=== PATIENT | female | born 1930 | race Caucasian/White ===

== ENCOUNTER 2020-07-10 00:01 | Inpatient (IN) | payer MEDICARE, OTHER ==
[~2020-07-10 00:01] MED LIST: ASPIRIN EC81 MG PO; ATIVAN1 MG PO; CEFDINIR300 MG PO; CLORAZEPATE DI7.5 MG PO; HYDRALAZINE 10M10 MG PO; KEPPRA500 MG PO; LOZOL2.5 MG PO; NIFEREX150 MG PO; PROTONIX 40MG T40 MG PO; TOPROL XL100 MG PO; [UNRECOGNIZED DRUG - OTHER] PO
[2020-07-10 00:24] LABS: BASOPHIL 0.3 % (0-2); EOSINOPHIL 0.1 % (0-7); HCT 48.7 % (37.0-47.0); HGB 15.6 g/dl (12.5-16.0); LYMPHOCYTE 6.1 % (15-48); MCH 29.1 pg (25.0-31.0); MCV 90.7 fL (78.0-100.0); MONOCYTE 2.1 % (0-12); MPV 10.2 fL (6.0-9.5); NEUTROPHIL 91.1 % (41-80); NRBC 0; PLT 181 K/uL (150-400); RBC 5.37 M/uL (4.20-5.40); RDW 14.1 % (11.5-14.0)
[2020-07-10 00:26] LABS: WBC 11.5 K/uL (4.0-10.5)
[2020-07-10 00:33] LABS: INR 1.01 (0.9-1.2); PROTHROMBIN TIME 12.6 SECONDS (11.4-13.6)
[2020-07-10 00:34] LABS: PTT 34.5 SECONDS (22.2-34.7)
[2020-07-10 00:41] LABS: ALBUMIN 3.7 g/dL (3.4-5.0); BILIRUBIN - TOTAL 0.7 mg/dL (0.2-1.0); CREATININE 0.77 mg/dL (0.51-0.95); GLOBULIN (CALCULATION) 3.9 g/dL; MAGNESIUM 2.1 mg/dL (1.8-2.4); POTASSIUM 3.5 mmol/L (3.5-5.1); TOTAL PROTEIN 7.6 g/dL (6.4-8.2)
[2020-07-10 00:48] LABS: LACTIC ACID 1.7 mmol/L (0.4-1.9)
[2020-07-10 02:12] LABS: BILIRUBIN NEGATIVE (NEGATIVE); BLOOD TRACE-INTACT Ery/uL (NEGATIVE); CLARITY CLEAR (CLEAR); COLOR YELLOW (YELLOW); GLUCOSE (U) NORMAL (NORMAL); LEUKOCYTES NEGATIVE Leu/uL (NEGATIVE); NITRITE NEGATIVE (NEGATIVE); PROTEIN 1+ mg/dL (NEGATIVE); UROBILINOGEN 0.2 mg/dL (0.2-1.0)
[2020-07-10 02:24] LABS: BACTERIA TRACE; URINARY WBC RARE
[2020-07-10] MEDS ORDERED: TOPROL XL 25MG25 MG PO (03:53)
[2020-07-10] MEDS ORDERED: INDAPAMIDE2.5 MG PO (03:55)
[2020-07-10] MEDS ORDERED: HYDRALAZINE 10M10 MG PO (03:56)
[2020-07-10] MEDS ORDERED: HYDROXYZINE 10M10 MG PO (03:57)
[2020-07-11] MEDS ORDERED: NORCO 5-325 TA1 EACH PO (11:35)
[2020-07-11] MEDS ORDERED: ONDANSETRON HCL4 MG PO (11:35)
== END 2020-07-11 14:50 | disposition home or self-care (01) | DRG 389 ==
LOC: FER 00:01 → FMS 02:53
PROVIDERS: Emergency Medicine; ADMIT Internal Medicine
DX: K56.609 Unspecified intestinal obstruction, unspecified as to partial versus complete obstruction (principal); E34.0 Carcinoid syndrome; C7B.04 Secondary carcinoid tumors of peritoneum; I48.91 Unspecified atrial fibrillation; I10 Essential (primary) hypertension; Z90.49 Acquired absence of other specified parts of digestive tract; Z90.710 Acquired absence of both cervix and uterus; Z98.49 Cataract extraction status, unspecified eye; R11.2 Nausea with vomiting, unspecified
CPT/HCPCS: 36415; 71260; 80053; 81001; 83605; 83690; 83735; 84145; 84484; 85025; 85610; 85730; 93005; G0378; J1170; J1650; J2354; J2405; J7030; Q9967

== ENCOUNTER 2021-11-04 12:45 | Emergency (ER) | payer MEDICARE, OTHER ==
[~2021-11-04 12:45] MED LIST changes: +HYDROXYZINE 10M10 MG PO; +INDAPAMIDE2.5 MG PO; +NORCO 5-325 TA1 EACH PO; +ONDANSETRON HCL4 MG PO; +TOPROL XL 25MG25 MG PO
[2021-11-04 15:30] LABS: CREATININE 0.8 mg/dL (0.51-0.95); POTASSIUM 3.8 mmol/L (3.5-5.1)
[2021-11-04 16:07] LABS: BASOPHIL 0.6 % (0-2); EOSINOPHIL 0.4 % (0-7); HCT 48.2 % (37.0-47.0); HGB 15.4 g/dl (12.5-16.0); LYMPHOCYTE 13.3 % (15-48); MCH 29.5 pg (25.0-31.0); MCV 92.3 fL (78.0-100.0); MONOCYTE 6.5 % (0-12); MPV 9.9 fL (6.0-9.5); NEUTROPHIL 78.9 % (41-80); NRBC 0; PLT 173 K/uL (150-400); RBC 5.22 M/uL (4.20-5.40); RDW 13.5 % (11.5-14.0); WBC 6.8 K/uL (4.0-10.5)
[2021-11-04] MEDS ORDERED: NORCO 5-325 TA1 EACH PO (17:39)
[2021-11-04 17:45] LABS: BILIRUBIN NEGATIVE (NEGATIVE); BLOOD TRACE-INTACT Ery/uL (NEGATIVE); CLARITY CLEAR (CLEAR); COLOR YELLOW (YELLOW); GLUCOSE (U) NORMAL (NORMAL); LEUKOCYTES NEGATIVE Leu/uL (NEGATIVE); NITRITE NEGATIVE (NEGATIVE); PROTEIN TRACE (LOW) mg/dL (NEGATIVE); UROBILINOGEN 0.2 mg/dL (0.2-1.0); pH 6.5 (5.0-9.0)
[2021-11-04 17:52] LABS: URINARY RBC RARE
[2021-11-04 17:53] LABS: BACTERIA TRACE
== END 2021-11-04 18:31 | disposition home or self-care (01) ==
LOC: FER 12:45
PROVIDERS: Nurse Practitioner Family
DX: M54.50 Low back pain, unspecified (principal); M25.552 Pain in left hip; I10 Essential (primary) hypertension; W19.XXXA Unspecified fall, initial encounter; Y92.009 Unspecified place in unspecified non-institutional (private) residence as the place of occurrence of the external cause
CPT/HCPCS: 36415; 72131; 73502; 80048; 81001; 84484; 85025; 93005; Q0162